=== PATIENT | male | born 1955 | race African-American/Black ===

== ENCOUNTER 2016-12-10 10:02 | Emergency (ER) | payer MEDICAID ==
--- NOTE | 2016-12-10 10:47 | ED Physician Chart ---
Chief Complaint/HPI - Patient Information Date Seen:: 12/10/16 Time Seen:: 10:30 Chief Complaint:: left arm weakness History of Present Illness:: Patient noted left arm weakness and numbness of his left small and ring fingers at 600 this morning. He also had weakness of his left leg. Weakness and numbness and now improved. Patient denies chest pain or shortness of breath. Patient has a history of hypertension. He stopped his high blood pressure medicine about 6 months ago because he lost 50 pounds. Patient has been monitoring his blood pressure about a week and it has been about 140/80. Allergies:: Allergies Allergy/AdvReac Type Severity Reaction Status Date / Time Penicillins [PCN] Allergy Verified 12/10/16 10:12 quetiapine [From Seroquel] Allergy Verified 12/10/16 10:12 Vitals:: Vital Signs - 8 hr 12/10/16 10:02 Temp 99.1 F HR 77 RR 16 BP 151/98 O2 Sat % 97 Historian:: Patient Review:: Nurse's Note Reviewed Review of Systems - Review of Systems General/Constitutional: No fever, No chills Skin: No skin lesions Head: No headache Eyes: No loss of vision ENT: No earache Neck: No neck pain, No thyromegaly Cardio Vascular: No chest pain, No palpitations Pulmonary: No SOB GI: No nausea, No vomiting G/U: No dysuria Musculoskeletal: No bone or joint pain, No back pain, No muscle pain Psychiatric: No prior psych history Hematopoietic: No bruising Allergic/Immuno: No urticaria Neurological: No syncope, Focal symptoms Past Medical History - Past Medical History Past Medical History: HTN Family History: Heart disease, Diabetes Melitus, HTN Social History: Smoker, Other (occasional alcohol only) Surgical History: None Medication: None Family Medical History - Family Member Mother Hx Family Diabetes: Yes Physical Exam - Physical Examination General/Constitutional: Well-developed, well-nourished, Alert, No distress, Non- toxic appearing Head: Atraumatic Eyes: Lids, conjuctiva normal, PERRL Other Eyes comments:: Could not visualize optic fundi Skin: Nl inspection, No rash, No skin lesions, No ecchymosis ENMT: External ears, nose nl, Nasal exam nl, Lips, teeth, gums nl, Oropharynx nl , Tonsils nl Other ENMT comments:: Right ceruminosis and left partial ceruminosis Neck: No JVD, No nuchal rigidity, No bruit Respiratory: Nl effort/Exclusion, Clear to Auscultation, No Wheeze/Rhonchi/Rales Cardio Vascular: RRR, No murmur, gallop, rubs, NL S1 S2 GI: No tenderness/rebounding/guarding, No organomegaly, No hernia, Normal BS's, Nondistended, No mass/bruits, No McBurney tenderness : No CVA tenderness Extremities: No tenderness or effusion Neuro/Psych: Alert/oriented, Judgement/insight normal, Mood normal, No focal deficits Other Neuro/Psych comments:: Strong equal hand grasp; no facial asymmetry; finger to nose and heel to vasquez performed normally Misc: Normal back, No paraspinal tenderness Labs/Radiology/EKG Results - Lab Results Comments:: Laboratory Results - last 24 hr 12/10/16 12/10/16 12/10/16 10:45 10:45 10:45 WBC 4.5 L RBC 5.12 Hgb 15.3 Hct 45.4 MCV 88.7 MCH 29.9 MCHC Differential 33.7 RDW 13.0 Plt Count 259 MPV 8.4 Neutrophils % 63.9 Lymphocytes % 21.7 Monocytes % 7.9 Eosinophils % 4.9 Basophils % 1.6 PT 11.5 INR 1.10 PTT (Actin FS) 31.3 Sodium 140 Potassium 3.6 Chloride 107 Carbon Dioxide 27.5 Anion Gap 9.1 BUN 14 Creatinine 1.2 Est GFR ( Amer) > 60.0 Est GFR (Non-Af Amer) > 60.0 BUN/Creatinine Ratio 11.7 Glucose 117 H Calcium 9.6 Total Bilirubin 0.4 AST 11 L ALT 9 Alkaline Phosphatase 54 Total Protein 7.1 Albumin 4.3 Globulin 2.8 Albumin/Globulin Ratio 1.5 - Radiology Results Results: Carotid flow study was normal. Echocardiogram was also normal. - EKG Interpretations Rate & Rhythm: normal sinus rhythm; rate 61; left axis deviation; T-wave changes noted Assessment - Assessment General Assessment: Patient became asymptomatic while in the emergency department. I urged him to be admitted; however patient declined admission. I spoke to Dr. Dhaliwal who also felt the patient should be admitted. If the patient left AGAINST MEDICAL ADVICE Dr. Dhaliwal recommended that the patient take one baby aspirin daily. ED Septic Shock - . Is Septic Shock (SBP<90, OR Lactate>4 mmol\L) present?: No - <6hrs of presentation: Vital Signs: Vital Signs - 8 hr 12/10/16 10:02 Temp 99.1 F HR 77 RR 16 BP 151/98 O2 Sat % 97 Reassessment (Disposition) - Reassessment Reassessment Condition:: Improved - Diagnosis Diagnosis:: Transient ischemic attack or cerebrovascular accident - Patient Disposition Discharge/Transfer:: Against Medical Advice Condition at Disposition:: Stable, Improved ED Discharge Plan - Patient Disposition Instructions: Ischemic Stroke
[2016-12-10 10:56] LABS: % BASOPHILS 1.6 % (0.0-2.0); % EOSINOPHILS 4.9 % (0.0-5.0); % LYMPHOCYTES 21.7 % (20.0-50.0); % MONOCYTES 7.9 % (2.0-10.0); % NEUTROPHILS 63.9 % (40.0-80.0); HEMATOCRIT 45.4 % (39.0-49.0); HEMOGLOBIN 15.3 gm/dL (13.2-17.3); MEAN CELL VOLUME 88.7 fl (80-99); MEAN CORPUSCULAR HEMOGLOBIN 29.9 pg (26.0-30.0); MEAN CORPUSCULAR HGB CONC 33.7 pg (28.0-36.0); MEAN PLATELET VOLUME 8.4 fl; NEUTROPHILE ABSOLUTE 2.8 Th/cmm (1.8-8.0); PLATELET COUNT 259 Th/cmm (150-400); RED BLOOD COUNT 5.12 Mil/cmm (4.30-5.70); WHITE BLOOD COUNT 4.5 Th/cmm (4.8-10.8)
[2016-12-10 11:11] LABS: INR 1.1 (0.5-1.4); PROTHROMBIN TIME (TEST) 11.5 SECONDS (9.5-11.5)
[2016-12-10 11:12] LABS: ALB/GLOB RATIO 1.5 (1.0-1.8); ALKALINE PHOSPHATASE 54 U/L (34-104); ANION GAP 9.1 (7.0-16.0); BILIRUBIN,TOTAL 0.4 mg/dL (0.3-1.0); BUN - UREA NITROGEN 14 mg/dL (7-25); BUN/CREATININE RATIO 11.7; CALCIUM SERUM 9.6 mg/dL (8.6-10.3); CARBON DIOXIDE 27.5 mEq/L (21.0-31.0); CHLORIDE 107 mEq/L (98-107); CREATININE - SERUM 1.2 mg/dL (0.7-1.3); GLUCOSE 117 mg/dL (70-105); POTASSIUM SERUM 3.6 mEq/L (3.5-5.1); SGOT 11 U/L (13-39); SGPT/ALT 9 U/L (7-52); SODIUM SERUM 140 mEq/L (136-145)
--- NOTE | 2016-12-10 11:22 | Diagnostic Imaging Report ---
Head CT without intravenous contrast Indication: Left arm numbness Comparison: None Technique: Axial images were obtained from the vertex to the skull base without IV contrast. Coronal reconstructions were made. Total DLP: 640, CTDI37.5 FINDINGS: Images of the brain obtained without contrast demonstrate no acute hemorrhage. No mass lesions identified. The ventricles and basal cisterns are patent. The palm-white matter differentiation is preserved. There is no mass effect or midline shift. No skull fractures identified. No soft tissue swelling. The paranasal sinuses are clear. There is suggestion of aberrant bilateral carotid arteries along the middle ear regions. IMPRESSION: No acute intracranial abnormality. 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 Atherosclerotic vascular disease.
--- NOTE | 2016-12-10 13:04 | Diagnostic Imaging Report ---
Carotid ultrasound HISTORY: Left arm weakness COMPARISON: None Technique: Longitudinal and transverse sonographic sector images of the carotid arteries were obtained with doppler analysis. FINDINGS: Exam of the right side demonstrates intimal thickening and mild to moderate atherosclerotic vascular disease. There is elevated velocity of the right ECA is 135 cm/second. Otherwise no evidence of elevated velocities or velocity ratios. Exam of the left-sided demonstrates intimal thickening and mild to moderate atherosclerotic vascular disease. No evidence of elevated velocities. The velocity ratios are within normal limits. Antegrade vertebral artery flow is demonstrated bilaterally. IMPRESSION: Mild to moderate generalized atherosclerotic vascular disease. No evidence of hemodynamically significant stenosis. Elevated velocity of the right external carotid artery, nonspecific and may be related to vessel tortuosity.
[2016-12-10 13:23] LABS: CHOLESTEROL 190 mg/dL (<200); TRIGLYCERIDES 113 mg/dL (<150)
--- NOTE | 2016-12-10 19:05 | Cardiology ---
12/10/2016 ECHOCARDIOGRAM REPORT M-MODE ECHOCARDIOGRAM: Mitral valve, anterior leaflet of mitral valve shows normal excursion, EF velocity. Posterior leaflet of the mitral valve shows normal excursion. Left ventricular posterior wall shows increased thickness, normal excursion. Interventricular septum shows increased thickness, normal excursion, hypertrophy of the left ventricle, ejection fraction 55%. Left atrium normal. Aortic root shows normal dimension, normal excursion of aortic leaflets. CONCLUSION: Hypertrophy of the left ventricle, ejection fraction 55%. 2D ECHO: Long axis view showed normal sized left ventricle with hypertrophy of the left ventricle. Left atrium normal. Aortic root shows normal dimension, normal excursion of aortic leaflets. Short axis view of mitral valve normal. Short axis view of aortic valve normal. Apical four chamber view showed normal sized left ventricle, left atrium, right ventricle, right atrium, tricuspid and mitral valve hypertrophy of the left ventricle. CONCLUSION: Hypertrophy of the left ventricle, ejection fraction 55%. Doppler study shows prominent A wave consistent with poor compliance of left ventricle. Mild mitral regurgitation, mild tricuspid regurgitation, mild aortic regurgitation. [facility]# [id number]
== END 2016-12-10 13:30 | disposition home or self-care (01) ==
LOC: ER 10:02
DX: R53.1 Weakness (principal); I10 Essential (primary) hypertension; F17.200 Nicotine dependence, unspecified, uncomplicated; Z88.0 Allergy status to penicillin; Z88.8 Allergy status to other drugs, medicaments and biological substances
CPT/HCPCS: 36415-UA; 70450-TC; 80053-TC; 80061-TC; 85025-TC; 85610-TC; 85730-TC; 93880-TC